=== PATIENT | male | born 1970 | race Caucasian/White ===

== ENCOUNTER 2022-08-01 13:25 | Emergency (ER) | payer SELFPAY ==
[~2022-08-01] VITALS: Ht 187.9 cm; Wt 80.7 kg
== END 2022-08-01 15:04 | disposition home or self-care (01) ==
LOC: ED 13:25
DX: S01.01XD Laceration without foreign body of scalp, subsequent encounter (principal); Z88.0 Allergy status to penicillin; X58.XXXD Exposure to other specified factors, subsequent encounter

== ENCOUNTER 2024-03-07 09:34 | Inpatient (IN) | payer SELFPAY ==
[~2024-03-07] VITALS: Ht 190.5 cm; Wt 71.2 kg
[2024-03-07 09:39] VITALS: BP 115/82
[2024-03-07] MEDS ORDERED: MULTIVITAMIN CONCENTRATE (IV) 10 ML,Thiamine 100 MG,FOLIC ACID 1 MG in SODIUM CHLORIDE ... IV ONE (10:05)
[2024-03-07] MEDS ORDERED: LEVETIRACETAM IN NACL (ISO-OS) 100 ML IV ONE (10:10)
[2024-03-07 10:22] LABS: BASO # 0.1 10*3/uL (0.0-0.1); BASO % 1.3 % (0.0-1.0); EOS # 0.1 10*3/uL (0.0-0.4); EOS % 0.8 % (1.0-4.0); HEMATOCRIT 36.2 % (42.0-52.0); LYMPH # 1.1 10*3/uL (1.3-4.4); MEAN CELL VOLUME 103.1 fl (80.0-94.0); MEAN CORPUSCULAR HGB 36.2 pg (27.0-31.0); MEAN CORPUSCULAR HGB CONC 35.1 g/dl (33.0-37.0); MONO % 13.2 % (3.0-9.0); NEUT # 5.3 10*3/uL (2.3-7.9); NEUT % 70.3 % (47.0-73.0); PLATELET COUNT AUTOMATED 158 10*3/uL (130-400); RED BLOOD COUNT 3.51 10*6/uL (4.50-5.90); RED CELL DISTRI WIDTH 12.8 % (0-14.5); WHITE BLOOD COUNT 7.6 10*3/uL (4.8-10.8)
[2024-03-07 10:42] LABS: ALKALINE PHOSPHATASE 105 U/L (46-116); CHLORIDE 97 mmol/L (98-107); ETHYL ALCOHOL 23.1 mg/dl (<3); POTASSIUM 3.4 mmol/L (3.4-5.1); SGPT/ALT 34 U/L (5-49); TOTAL PROTEIN 7.3 gm/dL (6.0-8.0)
[2024-03-07 10:56] LABS: BILIRUBIN 1+ (Negative); BLOOD Negative (Negative); CLARITY Clear (Clear); COLOR Dark Yellow (Yellow); GLUCOSE Negative (Negative); KETONE Trace (Negative); LEUKO ESTERASE Trace (Negative); NITRITE Negative (Negative); PH 7.5 (4.5-8.0)
[2024-03-07 11:04] LABS: URINE AMPHETAMINES Negative (1000ng/ml); URINE BARBITURATES Negative (200ng/ml); URINE BENZODIAZEPINES Negative (200ng/ml); URINE CANNABINOIDS (THC) Negative (50ng/ml); URINE COCAINE Negative (300ng/ml); URINE METHADONE Negative (300ng/ml); URINE OPIATES Negative (300ng/ml); URINE PHENCYCLIDINE Negative (25ng/ml)
[2024-03-07 11:08] LABS: BUN < 5 mg/dl (9-23)
[2024-03-07] MEDS ORDERED: MAGNESIUM SULFATE 50 ML IV SCH (11:20)
[2024-03-07] MEDS ORDERED: LORazepam 2 MG/ML VIAL IV ONE (11:20)
[2024-03-07 11:30] VITALS: BP 116/80
[2024-03-07 11:31] LABS: EPITHELIAL CELLS 0-2; MUCOUS 1+; RBC 0-2 rbc/hpf (0-2)
[2024-03-07] MEDS ORDERED: BISACODYL 10 MG SUPP R PRN (12:40)
[2024-03-07] MEDS ORDERED: Ondansetron Hydrochloride 4 MG/2 ML VIAL IV PRN (12:40)
[2024-03-07] MEDS ORDERED: BISACODYL 5 MG TAB PO PRN (12:40)
[2024-03-07] MEDS ORDERED: Acetaminophen/Hydrocodone 5 MG/325 MG TABLET PO PRN (12:40)
[2024-03-07] MEDS ORDERED: Magnesium Hydroxide 30 ML UDC PO PRN (12:40)
[2024-03-07] MEDS ORDERED: METHOCARBAMOL 750 MG TAB PO PRN (12:55)
[2024-03-07] MEDS ORDERED: Dicyclomine Hydrochloride 20 MG TAB PO PRN (12:55)
[2024-03-07] MEDS ORDERED: LORazepam 2 MG/ML VIAL IV PRN (12:55)
[2024-03-07] MEDS ORDERED: Water, Sterile 10 ML VIAL IV PRN (12:55)
[2024-03-07] MEDS ORDERED: hydrOXYzine 50 MG CAP PO PRN (12:55)
[2024-03-07 13:38] VITALS: BP 154/85
[2024-03-07] MEDS ORDERED: Ketorolac Tromethamine 30 MG/ML VIAL IV ONE (14:20)
[2024-03-07 15:00] VITALS: BP 169/105
[2024-03-07] MEDS ORDERED: LORazepam 1 MG TAB PO SCH (16:00)
[2024-03-07 17:56] LABS: BUN < 5 mg/dl (9-23); CHLORIDE 96 mmol/L (98-107); POTASSIUM 3.3 mmol/L (3.4-5.1)
[2024-03-07] MEDS ORDERED: Nicotine 21 MG PATCH T SCH (18:03)
[2024-03-07 20:00] VITALS: BP 129/84
[2024-03-07] MEDS ORDERED: POTASSIUM PHOSPHATE 40 MMOL in SODIUM CHLORIDE 0.9% 500 ML IV ONE (20:30)
[2024-03-07] MEDS ORDERED: DEXMEDETOMIDINE IN 0.9 % NACL 100 ML IV SCH (23:40)
[2024-03-08] VITALS (9 sets, daily range): BP systolic 104–143; BP diastolic 71–81
[2024-03-08 06:23] LABS: ACT PARTIAL THROMBO TIME 30.5 SECONDS (20.0-32.1)
[2024-03-08 06:25] LABS: ALKALINE PHOSPHATASE 100 U/L (46-116); CHLORIDE 98 mmol/L (98-107); CHOLESTEROL 147 mg/dL (<200); FREE T4 1.38 ng/dl (0.89-1.76); LDL CHOLESTEROL 47 mg/dL (9-159); POTASSIUM 3.5 mmol/L (3.4-5.1); SGPT/ALT 26 U/L (5-49); TOTAL PROTEIN 7.2 gm/dL (6.0-8.0); TRIGLYCERIDES 73 mg/dl (<150)
[2024-03-08 06:27] LABS: BASO # 0.1 10*3/uL (0.0-0.1); BASO % 1.1 % (0.0-1.0); EOS # 0.1 10*3/uL (0.0-0.4); EOS % 1.6 % (1.0-4.0); HEMATOCRIT 37.4 % (42.0-52.0); LYMPH # 1.2 10*3/uL (1.3-4.4); LYMPH % 14.1 % (27.0-41.0); MEAN CELL VOLUME 102.5 fl (80.0-94.0); MEAN CORPUSCULAR HGB 36.2 pg (27.0-31.0); MEAN CORPUSCULAR HGB CONC 35.3 g/dl (33.0-37.0); MEAN PLATELET VOLUME 10.8 fl (9.6-12.3); MONO % 11.7 % (3.0-9.0); NEUT # 6.1 10*3/uL (2.3-7.9); NEUT % 71.1 % (47.0-73.0); PLATELET COUNT AUTOMATED 144 10*3/uL (130-400); RED BLOOD COUNT 3.65 10*6/uL (4.50-5.90); RED CELL DISTRI WIDTH 12.9 % (0-14.5); WHITE BLOOD COUNT 8.5 10*3/uL (4.8-10.8)
[2024-03-08 06:34] LABS: BUN < 5 mg/dl (9-23)
[2024-03-08] MEDS ORDERED: MAGNESIUM SULFATE 100 ML IV ONE (06:55)
[2024-03-08 07:40] LABS: ABG BASE EXCESS 1.9 mmol/L (-2.0-3.0); ABG O2 SATURATION 94.5 % (94.0-98.0); ARTERIAL BLOOD GAS PH 7.494 (7.350-7.450); ARTERIAL BLOOD GAS PO2 74.9 mmHg (83.0-108.0)
[2024-03-08 08:35] LABS: VITAMIN D, 25-HYDROXY 13.2 ng/mL (30-100)
[2024-03-08] MEDS ORDERED: Enoxaparin Sodium 40 MG/0.4 ML SYR SC SCH (10:00)
[2024-03-08] MEDS ORDERED: GADOTERATE MEGLUMINE 10 MMOL/20 ML VIAL IV ONE (10:54)
[2024-03-08] MEDS ORDERED: Thiamine 100 MG TAB PO SCH (12:30)
[2024-03-08] MEDS ORDERED: LORazepam 1 MG TAB PO SCH (18:00)
[2024-03-08] MEDS ORDERED: ACETAMINOPHEN 325 MG TAB PO PRN (19:55)
[2024-03-09] VITALS (13 sets, daily range): BP systolic 108–145; BP diastolic 67–92
[2024-03-09 05:31] LABS: ALKALINE PHOSPHATASE 92 U/L (46-116); BUN 6 mg/dl (9-23); CHLORIDE 98 mmol/L (98-107); POTASSIUM 3.1 mmol/L (3.4-5.1); SGPT/ALT 30 U/L (5-49); TOTAL PROTEIN 6.8 gm/dL (6.0-8.0)
[2024-03-09 05:59] LABS: BASO # 0.1 10*3/uL (0.0-0.1); BASO % 0.9 % (0.0-1.0); EOS # 0.4 10*3/uL (0.0-0.4); EOS % 4.4 % (1.0-4.0); HEMATOCRIT 35.8 % (42.0-52.0); LYMPH # 1.7 10*3/uL (1.3-4.4); LYMPH % 18.5 % (27.0-41.0); MEAN CELL VOLUME 104.7 fl (80.0-94.0); MEAN CORPUSCULAR HGB 36.5 pg (27.0-31.0); MEAN CORPUSCULAR HGB CONC 34.9 g/dl (33.0-37.0); MEAN PLATELET VOLUME 11.2 fl (9.6-12.3); MONO # 0.8 10*3/uL (0.1-1.0); MONO % 8.4 % (3.0-9.0); NEUT % 67.4 % (47.0-73.0); PLATELET COUNT AUTOMATED 162 10*3/uL (130-400); RED BLOOD COUNT 3.42 10*6/uL (4.50-5.90); RED CELL DISTRI WIDTH 12.7 % (0-14.5); WHITE BLOOD COUNT 8.9 10*3/uL (4.8-10.8)
[2024-03-09] MEDS ORDERED: POTASSIUM CHLORIDE IV ONE (08:35)
[2024-03-09] MEDS ORDERED: SODIUM CHLORIDE 0.9% IV ONE (08:35)
[2024-03-09] MEDS ORDERED: Water, Sterile 10 ML VIAL ONE (09:47)
[2024-03-09] MEDS ORDERED: Cholecalciferol 2,000 UNIT TABLET (50 MCG) PO SCH (10:00)
[2024-03-09] MEDS ORDERED: MAGNESIUM SULFATE 50 ML IV ONE (10:05)
[2024-03-09] MEDS ORDERED: LORazepam 1 MG TAB PO PRN (12:00)
[2024-03-09 14:57] LABS: BUN 7 mg/dl (9-23); CHLORIDE 98 mmol/L (98-107); POTASSIUM 3.3 mmol/L (3.4-5.1)
[2024-03-09] MEDS ORDERED: AZITHROMYCIN 250 ML IV SCH (18:00)
[2024-03-09] MEDS ORDERED: Ceftriaxone Sodium 1 GM in SYRINGE INFUSION 10 ML IV SCH (18:00)
[2024-03-10] VITALS (12 sets, daily range): BP systolic 92–158; BP diastolic 51–94
[2024-03-10 05:59] LABS: ALKALINE PHOSPHATASE 93 U/L (46-116); BUN 7 mg/dl (9-23); CHLORIDE 98 mmol/L (98-107); POTASSIUM 3.6 mmol/L (3.4-5.1); SGPT/ALT 32 U/L (5-49); TOTAL PROTEIN 6.8 gm/dL (6.0-8.0)
[2024-03-10 06:09] LABS: BASO # 0.1 10*3/uL (0.0-0.1); EOS # 0.4 10*3/uL (0.0-0.4); EOS % 5.1 % (1.0-4.0); HEMATOCRIT 34.7 % (42.0-52.0); LYMPH # 1.8 10*3/uL (1.3-4.4); LYMPH % 21.2 % (27.0-41.0); MEAN CELL VOLUME 102.4 fl (80.0-94.0); MEAN CORPUSCULAR HGB 36.6 pg (27.0-31.0); MEAN CORPUSCULAR HGB CONC 35.7 g/dl (33.0-37.0); MEAN PLATELET VOLUME 10.6 fl (9.6-12.3); MONO % 12.5 % (3.0-9.0); NEUT # 4.9 10*3/uL (2.3-7.9); NEUT % 59.6 % (47.0-73.0); PLATELET COUNT AUTOMATED 182 10*3/uL (130-400); RED BLOOD COUNT 3.39 10*6/uL (4.50-5.90); RED CELL DISTRI WIDTH 12.5 % (0-14.5); WHITE BLOOD COUNT 8.2 10*3/uL (4.8-10.8)
[2024-03-10] MEDS ORDERED: MAGNESIUM SULFATE 100 ML IV ONE (09:35)
[2024-03-10] MEDS ORDERED: Chlordiazepoxide Hydrochlori 25 MG CAP PO SCH (18:00)
[2024-03-11] VITALS (12 sets, daily range): BP systolic 100–137; BP diastolic 63–90
[2024-03-11 05:43] LABS: ALKALINE PHOSPHATASE 103 U/L (46-116); BUN 7 mg/dl (9-23); CHLORIDE 96 mmol/L (98-107); POTASSIUM 3.2 mmol/L (3.4-5.1); SGPT/ALT 33 U/L (5-49); TOTAL PROTEIN 6.8 gm/dL (6.0-8.0)
[2024-03-11 06:24] LABS: BASO # 0.1 10*3/uL (0.0-0.1); BASO % 0.9 % (0.0-1.0); EOS # 0.3 10*3/uL (0.0-0.4); EOS % 3.4 % (1.0-4.0); HEMATOCRIT 35.5 % (42.0-52.0); LYMPH # 1.4 10*3/uL (1.3-4.4); LYMPH % 15.9 % (27.0-41.0); MEAN CELL VOLUME 104.1 fl (80.0-94.0); MEAN CORPUSCULAR HGB 36.4 pg (27.0-31.0); MEAN CORPUSCULAR HGB CONC 34.9 g/dl (33.0-37.0); MEAN PLATELET VOLUME 10.7 fl (9.6-12.3); MONO # 1.4 10*3/uL (0.1-1.0); MONO % 16.2 % (3.0-9.0); NEUT # 5.6 10*3/uL (2.3-7.9); NEUT % 63.3 % (47.0-73.0); PLATELET COUNT AUTOMATED 236 10*3/uL (130-400); RED BLOOD COUNT 3.41 10*6/uL (4.50-5.90); RED CELL DISTRI WIDTH 12.4 % (0-14.5); WHITE BLOOD COUNT 8.9 10*3/uL (4.8-10.8)
[2024-03-11] MEDS ORDERED: MAGNESIUM SULFATE 50 ML IV ONE (08:05)
[2024-03-11] MEDS ORDERED: POTASSIUM CHLORIDE IN WATER 100 ML IV SCH (09:00)
[2024-03-12] VITALS (8 sets, daily range): BP systolic 101–125; BP diastolic 64–83
[2024-03-12 05:24] LABS: ALKALINE PHOSPHATASE 112 U/L (46-116); BUN 6 mg/dl (9-23); CHLORIDE 96 mmol/L (98-107); POTASSIUM 3.3 mmol/L (3.4-5.1); SGPT/ALT 38 U/L (5-49)
[2024-03-12 06:15] LABS: HEMATOCRIT 35.5 % (42.0-52.0); MEAN CELL VOLUME 103.8 fl (80.0-94.0); MEAN CORPUSCULAR HGB 35.7 pg (27.0-31.0); MEAN CORPUSCULAR HGB CONC 34.4 g/dl (33.0-37.0); MEAN PLATELET VOLUME 10.6 fl (9.6-12.3); PLATELET COUNT AUTOMATED 266 10*3/uL (130-400); RED BLOOD COUNT 3.42 10*6/uL (4.50-5.90); RED CELL DISTRI WIDTH 12.4 % (0-14.5); WHITE BLOOD COUNT 9.6 10*3/uL (4.8-10.8)
[2024-03-12 06:19] LABS: MANUAL DIFF REFLEX YES
[2024-03-12 06:58] LABS: BASOPHILS 3 % (0-1); OVALOCYTES FEW; PLATELET SUFFICIENCY NORMAL (NORMAL); POLYCHROMASIA SLIGHT; ROULEAUX SLIGHT; TOTAL CELLS COUNTED 100 #CELLS; VACUOLATION OF NEUTROPHILS SLIGHT
[2024-03-12] MEDS ORDERED: POTASSIUM CHLORIDE 20 MEQ TAB PO ONE (07:10)
[2024-03-12] MEDS ORDERED: MAGNESIUM SULFATE 100 ML IV ONE (08:05)
[2024-03-12] MEDS ORDERED: POTASSIUM CHLORIDE IN WATER 100 ML IV SCH (09:00)
[2024-03-12 18:13] LABS: BUN 6 mg/dl (9-23); CHLORIDE 96 mmol/L (98-107); POTASSIUM 3.6 mmol/L (3.4-5.1)
[2024-03-13] VITALS: BP 120/74
[2024-03-13 04:00] VITALS: BP 110/80
[2024-03-13 05:41] LABS: ALKALINE PHOSPHATASE 131 U/L (46-116); BUN 6 mg/dl (9-23); CHLORIDE 98 mmol/L (98-107); POTASSIUM 3.4 mmol/L (3.4-5.1); SGPT/ALT 65 U/L (5-49); TOTAL PROTEIN 6.9 gm/dL (6.0-8.0)
[2024-03-13 06:06] LABS: HEMATOCRIT 33.9 % (42.0-52.0); MEAN CELL VOLUME 103.7 fl (80.0-94.0); MEAN CORPUSCULAR HGB 35.8 pg (27.0-31.0); MEAN CORPUSCULAR HGB CONC 34.5 g/dl (33.0-37.0); MEAN PLATELET VOLUME 10.6 fl (9.6-12.3); PLATELET COUNT AUTOMATED 329 10*3/uL (130-400); RED BLOOD COUNT 3.27 10*6/uL (4.50-5.90); RED CELL DISTRI WIDTH 12.6 % (0-14.5); WHITE BLOOD COUNT 9.5 10*3/uL (4.8-10.8)
[2024-03-13 06:09] LABS: MANUAL DIFF REFLEX YES
[2024-03-13] MEDS ORDERED: MAGNESIUM SULFATE 50 ML IV ONE (07:00)
[2024-03-13 07:15] LABS: TOTAL CELLS COUNTED 100 #CELLS
[2024-03-13 07:16] LABS: PLATELET SUFFICIENCY NORMAL (NORMAL); ROULEAUX SLIGHT
[2024-03-13 08:00] VITALS: BP 126/87
[2024-03-13] MEDS ORDERED: VITAMIN D350 MCG PO (11:57)
[2024-03-13] MEDS ORDERED: NATURE'S BLEND100 M2 PO (11:57)
== END 2024-03-13 12:35 | disposition home or self-care (01) | DRG 896 ==
LOC: ED 09:34 → EDHOLD 11:54 → ICCU 11:54 → EDHOLD 12:48 → ICCU 12:56
PROVIDERS: Nurse Practitioner Family; Student in an Organized Health Care Education/Training Program; ADMIT Internal Medicine; ATTEND Internal Medicine
DX: F10.930 Alcohol use, unspecified with withdrawal, uncomplicated (principal); G93.41 Metabolic encephalopathy; J69.0 Pneumonitis due to inhalation of food and vomit; E87.1 Hypo-osmolality and hyponatremia; E83.42 Hypomagnesemia; I10 Essential (primary) hypertension; G40.909 Epilepsy, unspecified, not intractable, without status epilepticus; D53.9 Nutritional anemia, unspecified; F17.210 Nicotine dependence, cigarettes, uncomplicated; Z71.6 Tobacco abuse counseling; Z88.0 Allergy status to penicillin; Z82.49 Family history of ischemic heart disease and other diseases of the circulatory system

== ENCOUNTER 2024-04-11 14:44 | Emergency (ER) | payer MEDICAID ==
[~2024-04-11] VITALS: Ht 187.9 cm; Wt 67.6 kg
[~2024-04-11 14:44] MED LIST: NATURE'S BLEND100 M2 PO; VITAMIN D350 MCG PO
[2024-04-11] MEDS ORDERED: SEPTDS PO (15:34)
[2024-04-11] MEDS ORDERED: Acetaminophen/Oxycodone 5 MG/325 MG TABLET PO ONE (15:35)
== END 2024-04-11 15:47 | disposition home or self-care (01) ==
LOC: ED 14:44
DX: L02.212 Cutaneous abscess of back [any part, except buttock and flank] (principal); E87.1 Hypo-osmolality and hyponatremia; J44.9 Chronic obstructive pulmonary disease, unspecified; F17.200 Nicotine dependence, unspecified, uncomplicated; Z88.0 Allergy status to penicillin; Z98.890 Other specified postprocedural states

== ENCOUNTER → 2024-04-12 | Outpatient (CLI) | payer MEDICAID ==
[~2024-04-12] MED LIST changes: +SEPTDS PO
== END | disposition home or self-care (01) ==
LOC: WOUNDCARE 04:21
PROVIDERS: ATTEND Nurse Practitioner Family
DX: T81.30XA Disruption of wound, unspecified, initial encounter (principal); L02.212 Cutaneous abscess of back [any part, except buttock and flank]; I10 Essential (primary) hypertension; L03.90 Cellulitis, unspecified; R60.9 Edema, unspecified; F17.210 Nicotine dependence, cigarettes, uncomplicated; Z79.899 Other long term (current) drug therapy; Y83.8 Other surgical procedures as the cause of abnormal reaction of the patient, or of later complication, without mention of misadventure at the time of the procedure; Y92.89 Other specified places as the place of occurrence of the external cause

== ENCOUNTER 2024-04-15 15:48 | Emergency (ER) | payer MEDICAID ==
[~2024-04-15] VITALS: Ht 187.9 cm; Wt 67.6 kg
[2024-04-15 17:32] LABS: BASO # 0.1 10*3/uL (0.0-0.1); BASO % 1.5 % (0.0-1.0); EOS # 1.2 10*3/uL (0.0-0.4); EOS % 13.2 % (1.0-4.0); HEMATOCRIT 41.7 % (42.0-52.0); LYMPH # 3.3 10*3/uL (1.3-4.4); LYMPH % 37.7 % (27.0-41.0); MEAN CELL VOLUME 98.6 fl (80.0-94.0); MEAN CORPUSCULAR HGB 33.6 pg (27.0-31.0); MEAN CORPUSCULAR HGB CONC 34.1 g/dl (33.0-37.0); MEAN PLATELET VOLUME 9.3 fl (9.6-12.3); MONO # 0.7 10*3/uL (0.1-1.0); MONO % 8.2 % (3.0-9.0); NEUT # 3.5 10*3/uL (2.3-7.9); NEUT % 39.2 % (47.0-73.0); PLATELET COUNT AUTOMATED 332 10*3/uL (130-400); RED BLOOD COUNT 4.23 10*6/uL (4.50-5.90); RED CELL DISTRI WIDTH 13.1 % (0-14.5); WHITE BLOOD COUNT 8.8 10*3/uL (4.8-10.8)
[2024-04-15 17:49] LABS: BUN 7 mg/dl (9-23); CHLORIDE 102 mmol/L (98-107); POTASSIUM 3.9 mmol/L (3.4-5.1)
[2024-04-15] MEDS ORDERED: Acetaminophen/Oxycodone 5 MG/325 MG TABLET PO ONE (17:55)
== END 2024-04-15 18:11 | disposition left against medical advice (07) ==
LOC: ED 15:48
PROVIDERS: Internal Medicine
DX: L02.212 Cutaneous abscess of back [any part, except buttock and flank] (principal); J44.9 Chronic obstructive pulmonary disease, unspecified; F17.200 Nicotine dependence, unspecified, uncomplicated; Z88.0 Allergy status to penicillin; Z98.890 Other specified postprocedural states; Z53.29 Procedure and treatment not carried out because of patient's decision for other reasons

== ENCOUNTER → 2024-04-19 | Outpatient (CLI) | payer MEDICAID | END | disposition home or self-care (01) | LOC: WOUNDCARE 02:09 | PROVIDERS: ATTEND Nurse Practitioner Family | DX: T81.30XD Disruption of wound, unspecified, subsequent encounter (principal); L02.212 Cutaneous abscess of back [any part, except buttock and flank]; I10 Essential (primary) hypertension; L03.90 Cellulitis, unspecified; R60.9 Edema, unspecified; F17.210 Nicotine dependence, cigarettes, uncomplicated; Z79.899 Other long term (current) drug therapy; Y83.8 Other surgical procedures as the cause of abnormal reaction of the patient, or of later complication, without mention of misadventure at the time of the procedure ==

== ENCOUNTER → 2024-04-25 | Outpatient (CLI) | payer MEDICAID | END | disposition home or self-care (01) | LOC: WOUNDCARE 02:14 | PROVIDERS: ATTEND Nurse Practitioner Family | DX: T81.30XD Disruption of wound, unspecified, subsequent encounter (principal); L02.212 Cutaneous abscess of back [any part, except buttock and flank]; I10 Essential (primary) hypertension; L03.90 Cellulitis, unspecified; R60.9 Edema, unspecified; F17.210 Nicotine dependence, cigarettes, uncomplicated; Z79.899 Other long term (current) drug therapy; Y83.8 Other surgical procedures as the cause of abnormal reaction of the patient, or of later complication, without mention of misadventure at the time of the procedure ==

== ENCOUNTER → 2024-05-02 | Outpatient (CLI) | payer OTHER | END | disposition home or self-care (01) | LOC: WOUNDCARE 01:12 | PROVIDERS: ATTEND Nurse Practitioner Family | DX: T81.30XD Disruption of wound, unspecified, subsequent encounter (principal); L02.212 Cutaneous abscess of back [any part, except buttock and flank]; I10 Essential (primary) hypertension; L03.90 Cellulitis, unspecified; R60.9 Edema, unspecified; F17.210 Nicotine dependence, cigarettes, uncomplicated; Z79.899 Other long term (current) drug therapy; Y83.8 Other surgical procedures as the cause of abnormal reaction of the patient, or of later complication, without mention of misadventure at the time of the procedure ==